=== PATIENT | female | born 1930 | race Caucasian/White ===

== ENCOUNTER 2020-09-12 19:11 | Inpatient (IN) ==
--- NOTE | 2020-09-12 19:54 | Emergency Department Note ---
Impression & Plan Nausea, vomiting, and diarrhea, Urinary tract infection ED Provider Note INFORMANT: Patient ED PROVIDER(S): Bryce Alonso MD CHIEF COMPLAINT: Nausea, vomiting, diarrhea PLAN: Disposition: Admitted Condition: Good Outpatient prescription management: none Referral: None MEDICAL DECISION MAKING: Patient presented because of nausea and vomiting. She did have some diarrhea as well. Family noted that she was very weak. She has some difficulty ambulating at baseline but it had significantly worsened since her illness. had similar symptoms last week. The patient had a benign abdomen. She had stable vital signs. She was hydrated and given Zofran. She was feeling significantly better with this. She did provide a urinalysis and blood work. Her CBC was unremarkable. LFTs and lipase were negative. The patient's chemistry panel was concerning for dehydration and urinalysis concerning for UTI. She was treated with IV Rocephin. She is given oral fluids. The patient was feeling better but was still very weak. She did not feel well enough to go home and family agreed. I discussed further management in the hospital and patient and family were in agreement. Consultation was made with Dr. Johnie Santiago of the [facility] service. Patient was evaluated in the ER for further management. The patient was seen and examined with Dr. Heck, resident physician. We discussed the case and treatments ordered, reviewed the results, and determine the disposition. I have been directly involved with the management and disposition as well as independently evaluated the patient as documented in this note. Triage Nursing notes reviewed and agree them. Vital Signs: reviewed and remarkable for no significant abnormalities Differential diagnosis: Viral process, infection, dehydration, metabolic abnormality, hypo/hyperglycemia, electrolyte disturbance, anemia, hypoxia, cardiac sources, intracerebral event, toxicologic, intra-abdominal pathology, as well as other pathologies. Diagnostics interpreted by me: ECG: Twelve-lead ECG reveals normal sinus rhythm at [address] elevation or depression. No PACs or PVCs. Normal QRS and axis. Cardiac Monitoring: Cardiac monitoring ordered by me: The patient was placed on continuous cardiac monitoring and observed. It revealed a normal sinus rhythm at 82 beats per minute without ectopy or evidence of dysrhythmia. Imaging studies: Deferred. The patient had a benign abdomen. HPI: The patient is a 89 year old female who presents to the Emergency Room with complaints of vomiting. This started last night at 10 pm and is persisting. The patient also notes the following associated symptoms, chills, nausea, diarrhea, nasal congestion, fleeting abdominal pain. The patient has taken two advil for relieving factors. Current pain is rated as 0/10. was sick with NVD last week. Pt denies LOC, headache, fevers, diaphoresis, visual changes, neck pain, chest pain, breathing difficulties, abdominal pain, back pain, melena, hematochezia, urinary symptoms, numbness, weakness, lymphadenopathy, rash, or other complaints. ROS: See above HPI for pertinent positives & negatives. A total of 10 systems reviewed and were otherwise negative. PAST MEDICAL HISTORY:See Below , diabetes PAST SURGICAL HISTORY:See Below, denies abd surgeries FAMILY HISTORY:See Below SOCIAL HISTORY:See Below, HOME MEDICATIONS:See Below ALLERGIES:See Below VITALS:See Below PHYSICAL EXAMINATION: GENERAL: Awake, alert, uncomfortable-appearing, in no distress HENT: Normocephalic, atraumatic. Oropharynx unremarkable. EYES: Normal conjunctiva. Sclera non-icteric. NECK: Inspection normal. Non-tender. Supple. No nuchal rigidity. FROM. No masses. RESPIRATORY: Clear to auscultation. No wheezes. No rales. Normal respiratory effort. CARDIAC: Normal rate. Normal rhythm. No murmurs. No rubs. Extremities warm and well perfused. Pulses equal. No JVD. GI: Soft, non-distended. No tenderness to palpation. No rebound or guarding. No masses. RECTAL: Deferred. MUSCULOSKELETAL: Atraumatic. Chest examination reveals no tenderness. The back is symmetrical on inspection without obvious abnormality. There is no CVA tenderness to palpation. No joint edema. LOWER EXTREMITIES: Calves are equal size bilaterally and non-tender. No edema. No discoloration. NEURO: Normal sensorium. No sensory or motor deficits noted. SKIN: No rash or jaundice noted. Bryce Alonso MD Past Med/Surg History Medical History (Updated 09/13/20 @ 03:23 by Bryce Alonso MD) Diabetes mellitus Hyperlipidemia Hypertension Social History Smoking Status: Never smoker Hx Alcohol Use: Yes Alcohol type: wine Hx Substance Use: No Preferred Language: Burundian Communication Ability: Effective Snuff [employer]inder [employer] Screener Required: No Beliefs That Will Affect Care: None Current Living Situation: Spouse Feels Safe at Home: Yes Assistive Devices: Walker Allergies Allergies Allergy/AdvReac Type Severity Reaction Status Date / Time No Known Allergies Allergy Unverified 09/13/20 00:00 Home Meds Home Medications Medication Instructions Recorded Confirmed metformin 850 mg tablet 850 mg PO QAM 09/12/20 09/13/20 moexipril 7.5 mg tablet 7.5 mg PO DAILY 09/12/20 09/13/20 multivitamin 1 tab PO DAILY 09/12/20 09/13/20 simvastatin 40 mg tablet 40 mg PO HS 09/12/20 09/13/20 Results & Data (ED) Vital Signs Vital Signs - 24 hr 09/12/20 19:14 09/12/20 19:52 09/12/20 20:30 Temperature 37.3 C Temperature Source Temporal Artery Scan Pulse Rate 92 H 80 Pulse Rate [Left Finger] 85 Pulse Rate from SpO2 Sensor 81 Pulse Rhythm [Left Finger] Regular Respiratory Rate 18 19 Respiratory Effort / Characteristics Non-Labored Spontaneous Respiratory Depth Normal Blood Pressure 116/71 116/78 Blood Pressure [Left Arm] 119/72 Blood Pressure Mean 86 90 Blood Pressure Mean [Left Arm] 87 Blood Pressure Position [Left Arm] Sitting Pulse Oximetry 92 92 93 Oxygen Delivery Method Room Air Sepsis Recent Fever Within 48 Hours No Sepsis New/Unexplained Change in Mental Status No Sepsis Action Taken by Nursing No Action Required 09/12/20 21:00 09/12/20 21:30 09/12/20 22:00 Temperature Temperature Source Pulse Rate 83 82 77 Pulse Rate [Left Finger] Pulse Rate from SpO2 Sensor 82 82 78 Pulse Rhythm [Left Finger] Respiratory Rate 17 19 24 Respiratory Effort / Characteristics Respiratory Depth Blood Pressure 116/72 111/67 115/74 Blood Pressure [Left Arm] Blood Pressure Mean 86 81 87 Blood Pressure Mean [Left Arm] Blood Pressure Position [Left Arm] Pulse Oximetry 91 91 92 Oxygen Delivery Method Sepsis Recent Fever Within 48 Hours Sepsis New/Unexplained Change in Mental Status Sepsis Action Taken by Nursing 09/12/20 22:30 09/12/20 23:00 Temperature Temperature Source Pulse Rate 80 79 Pulse Rate [Left Finger] Pulse Rate from SpO2 Sensor 81 80 Pulse Rhythm [Left Finger] Respiratory Rate 12 20 Respiratory Effort / Characteristics Respiratory Depth Blood Pressure 120/69 126/76 Blood Pressure [Left Arm] Blood Pressure Mean 86 92 Blood Pressure Mean [Left Arm] Blood Pressure Position [Left Arm] Pulse Oximetry 92 92 Oxygen Delivery Method Sepsis Recent Fever Within 48 Hours Sepsis New/Unexplained Change in Mental Status Sepsis Action Taken by Nursing Laboratory Data Result diagrams: 09/12/20 20:09 09/12/20 20:09 Lab Results 09/12/20 09/12/20 09/12/20 Range/Units 20:09 20:09 21:08 WBC 8.63 (4.8-10.8) K/uL RBC 4.70 (4.2-5.4) M/uL Hgb 14.7 (12.0-16.0) g/dL Hct 44.1 (37-47) % MCV 93.8 (80-100) fL MCH 31.3 (25-34) pg MCHC 33.3 (32-36) g/dL RDW Std Deviation 50.7 H (36.4-46.3) fL RDW Coeff of Wendi 14.6 H (11.5-14.5) % Plt Count 143 (130-400) K/uL MPV 9.4 (7.4-10.4) fL Immature Gran % (Auto) 0.2 % Neut % (Auto) 76.4 % Lymph % (Auto) 11.0 % [place] % (Auto) 11.9 % Eos % (Auto) 0.5 % Baso % (Auto) 0.0 % Neut # (Auto) 6.59 H (1.4-6.5) K/uL Lymph # (Auto) 0.95 L (1.2-3.4) K/uL [place] # (Auto) 1.03 H (0.11-0.59) K/uL Eos # (Auto) 0.04 (0-0.5) K/uL Baso # (Auto) 0.00 (0-0.2) K/uL Immature Gran # (Auto) 0.02 (0.00-0.02) K/uL Sodium 139 (136-145) mmol/L Potassium 3.9 (3.5-5.1) mmol/L Chloride 108 H (98-107) mmol/L Carbon Dioxide 24 (21-32) mmol/L Anion Gap 7.0 (3-11) BUN 30 H (7-18) mg/dl Creatinine 1.12 (0.6-1.2) mg/dl Est Cr Clr Drug Dosing Not Reportable Est GFR ( Amer) 50.8 ml/min Est GFR (Non-Af Amer) 43.8 ml/min BUN/Creatinine Ratio 26.9 H (10-20) Glucose 131 H (70-99) mg/dl Calcium 8.5 (8.5-10.1) mg/dl Total Bilirubin 0.5 (0.2-1) mg/dl AST 18 (15-37) U/L ALT 27 (12-78) U/L Alkaline Phosphatase 55 (45-117) U/L Total Protein 6.9 (6.4-8.2) gm/dl Albumin 3.5 (3.4-5.0) gm/dl Globulin 3.4 (2.5-4.0) gm/dl Albumin/Globulin Ratio 1.0 (0.9-2) Lipase 70 L (73-393) U/L Urine Color Dark Yellow Urine Appearance Cloudy A (Clear) Urine pH 5.5 (4.5-7.5) Ur Specific [place] 1.026 (1.000-1.030) Urine Protein 1+ H (Negative) Urine Glucose (UA) Negative (Negative) Urine Ketones Negative (Negative) Urine Blood 2+ H (Negative) Urine Nitrite Positive A (Negative) Urine Bilirubin Negative (Negative) Urine Urobilinogen Negative (Negative) Ur Leukocyte Esterase 2+ H (Negative) Urine WBC (Auto) >30 H (0-5) /hpf Urine RBC (Auto) 0-4 (0-4) /hpf U Hyaline Cast (Auto) 0 (0-5) /lpf U Epithel Cells (Auto) 10-20 H (0-5) /lpf Urine Bacteria (Auto) 4+ H (Negative) COVID-19 Eval Order SARS-CoV-2 (PCR) (Negative) 09/12/20 09/12/20 Range/Units 23:08 23:08 WBC (4.8-10.8) K/uL RBC (4.2-5.4) M/uL Hgb (12.0-16.0) g/dL Hct (37-47) % MCV (80-100) fL MCH (25-34) pg MCHC (32-36) g/dL RDW Std Deviation (36.4-46.3) fL RDW Coeff of Wendi (11.5-14.5) % Plt Count (130-400) K/uL MPV (7.4-10.4) fL Immature Gran % (Auto) % Neut % (Auto) % Lymph % (Auto) % [place] % (Auto) % Eos % (Auto) % Baso % (Auto) % Neut # (Auto) (1.4-6.5) K/uL Lymph # (Auto) (1.2-3.4) K/uL [place] # (Auto) (0.11-0.59) K/uL Eos # (Auto) (0-0.5) K/uL Baso # (Auto) (0-0.2) K/uL Immature Gran # (Auto) (0.00-0.02) K/uL Sodium (136-145) mmol/L Potassium (3.5-5.1) mmol/L Chloride (98-107) mmol/L Carbon Dioxide (21-32) mmol/L Anion Gap (3-11) BUN (7-18) mg/dl Creatinine (0.6-1.2) mg/dl Est Cr Clr Drug Dosing Est GFR ( Amer) ml/min Est GFR (Non-Af Amer) ml/min BUN/Creatinine Ratio (10-20) Glucose (70-99) mg/dl Calcium (8.5-10.1) mg/dl Total Bilirubin (0.2-1) mg/dl AST (15-37) U/L ALT (12-78) U/L Alkaline Phosphatase (45-117) U/L Total Protein (6.4-8.2) gm/dl Albumin (3.4-5.0) gm/dl Globulin (2.5-4.0) gm/dl Albumin/Globulin Ratio (0.9-2) Lipase (73-393) U/L Urine Color Urine Appearance (Clear) Urine pH (4.5-7.5) Ur Specific [place] (1.000-1.030) Urine Protein (Negative) Urine Glucose (UA) (Negative) Urine Ketones (Negative) Urine Blood (Negative) Urine Nitrite (Negative) Urine Bilirubin (Negative) Urine Urobilinogen (Negative) Ur Leukocyte Esterase (Negative) Urine WBC (Auto) (0-5) /hpf Urine RBC (Auto) (0-4) /hpf U Hyaline Cast (Auto) (0-5) /lpf U Epithel Cells (Auto) (0-5) /lpf Urine Bacteria (Auto) (Negative) COVID-19 Eval Order Covid19 at [facility] SARS-CoV-2 (PCR) NEGATIVE (Negative) Administered Medications Potassium Chloride/Sodium Chloride (Normal Saline W/20 Meq Kcl) 20 meq in 1,000 mls @ 80 mls/hr IV .[id number] SAGAR Stop: 09/13/20 14:29 Last Admin: 09/13/20 02:18 Dose: 80 mls/hr Documented by: [id number] Discontinued Medications Sodium Chloride (Nss) 500 mls @ 125 mls/hr IV .Q4H SAGAR Stop: 10/12/20 19:59 Last Infusion: 09/13/20 01:47 Dose: 0 mls/hr Documented by: [id number] Admin: 09/13/20 00:55 Dose: 125 mls/hr Documented by: [id number] Infusion: 09/13/20 00:55 Dose: 125 mls/hr Documented by: [id number] Admin: 09/12/20 20:56 Dose: 125 mls/hr Documented by: [id number] Sodium Chloride (Nss 1000ml) 500 mls @ 999 mls/hr IV .Q31M ONE Stop: 09/12/20 20:25 Last Infusion: 09/12/20 20:56 Dose: 0 mls/hr Documented by: [id number] Admin: 09/12/20 20:20 Dose: 999 mls/hr Documented by: [id number] Ceftriaxone Sodium (Rocephin) 1,000 mg in 50 mls @ 100 mls/hr IV NOW STA Stop: 09/12/20 23:28 Last Infusion: 09/12/20 23:34 Dose: 0 mls/hr Documented by: [id number] Admin: 09/12/20 23:04 Dose: 100 mls/hr Documented by: [id number] Miscellaneous (Patient's Weight Needed) 1 ea N/A Q2H SAGAR Stop: 09/13/20 06:00 Last Admin: 09/13/20 02:11 Dose: 1 ea Documented by: [id number] Ondansetron HCl (Ondansetron Inj 2 Mg/Ml 2 Ml Vial) 4 mg IV NOW STA Stop: 09/12/20 19:56 Last Admin: 09/13/20 00:25 Dose: Not Given Documented by: [id number] Discharge Plan Visit Data Chief Complaint: Vomiting Stated Complaint: VOMITING ED Provider: Bryce Alonso Discharge Problem: Nausea, vomiting, and diarrhea, Urinary tract infection Patient Disposition: Admitted As Inpatient Discharge Instructions Interventions: ED Discharge Assessment Last Done: 09/13/20 01:07
[2020-09-12] MEDS ORDERED: SODIUM CHLORIDE 0.9% 1000ML 500 ML IV ONE (19:55)
[2020-09-12] MEDS: ONDANSETRON INJ 2 MG/ML 2 ML VIAL IV STA (20:20)
[2020-09-12 20:21] LABS: Eosinophils # (auto) 0.04 K/uL (0-0.5); Eosinophils % (auto) 0.5 %; Hematocrit (blood only) 44.1 % (37-47); Hemoglobin 14.7 g/dL (12.0-16.0); Immature Granulocytes # (auto) 0.02 K/uL (0.00-0.02); Immature Granulocytes % (auto) 0.2 %; Lymphocytes # (auto) 0.95 K/uL (1.2-3.4); Mean Corpuscular Hemoglobin 31.3 pg (25-34); Mean Corpuscular Hgb Conc 33.3 g/dL (32-36); Mean Corpuscular Volume 93.8 fL (80-100); Mean Platelet Volume 9.4 fL (7.4-10.4); Monocytes # (auto) 1.03 K/uL (0.11-0.59); Monocytes % (auto) 11.9 %; Neutrophils # (auto) 6.59 K/uL (1.4-6.5); Neutrophils % (auto) 76.4 %; Platelet Count 143 K/uL (130-400); RDW Coefficient of Variation 14.6 % (11.5-14.5); RDW Standard Deviation 50.7 fL (36.4-46.3); White Blood Count 8.63 K/uL (4.8-10.8)
[2020-09-12 20:42] LABS: Alanine Aminotransferase 27 U/L (12-78); Albumin Level 3.5 gm/dl (3.4-5.0); Aspartate Aminotransferase 18 U/L (15-37); BUN Creatinine Ratio 26.9 (10-20); Blood Urea Nitrogen 30 mg/dl (7-18); Calcium 8.5 mg/dl (8.5-10.1); Carbon Dioxide 24 mmol/L (21-32); Chloride 108 mmol/L (98-107); Est GFR (African American) 50.8 ml/min; Est GFR (Non-African American) 43.8 ml/min; Glucose 131 mg/dl (70-99); Lipase 70 U/L (73-393); Potassium 3.9 mmol/L (3.5-5.1); Sodium 139 mmol/L (136-145)
[2020-09-12 20:45] LABS: Alkaline Phosphatase 55 U/L (45-117); Bilirubin,Total 0.5 mg/dl (0.2-1); Globulin 3.4 gm/dl (2.5-4.0); Total Protein 6.9 gm/dl (6.4-8.2)
[2020-09-12] MEDS: SODIUM CHLORIDE 0.9% 500 ML IV SCH (20:56)
[2020-09-12 21:25] LABS: Appearance Urine Cloudy (Clear); Bacteria Urine Automated 4+ (Negative); Bilirubin Urine Negative (Negative); Blood Urine 2+ (Negative); Color Urine Dark Yellow; Glucose Urine UA Negative (Negative); Ketones Urine Negative (Negative); Leukocyte Esterase Urine 2+ (Negative); Nitrite Urine Positive (Negative); Protein Urine 1+ (Negative); RBC Urine Automated 0-4 /hpf (0-4); Specific Gravity Urine 1.026 (1.000-1.030); Urobilinogen Urine Negative (Negative); WBC Urine Automated >30 /hpf (0-5); pH Urine 5.5 (4.5-7.5)
[2020-09-12 21:43] LABS: Cast Urine Automated 0 /lpf (0-5)
[2020-09-12] MEDS ORDERED: cefTRIAXone SODIUM 1,000 MG/50 ML BAG IV STA (22:59)
--- NOTE | 2020-09-12 23:30 | History & Physical Report ---
Date of Service September 12, 2020 Assessment & Plan (1) Urinary tract infection: Plan: Follow urine culture and sensitivities Follow blood culture and sensitivity Continue ceftriaxone 1 g IV daily, begun in the ED NSS plus KCl 20 mEq at 80 mils per hour x1 L Zofran 4 mg IV every 6 hours as needed (2) Dehydration, mild: Plan: IV fluids as noted above (3) Hypertension: Plan: Hold moexipril (4) Hyperlipidemia: Plan: Continue simvastatin 40 mg at bedtime (5) Diabetes mellitus: Plan: Hold Metformin Patient Accu-Cheks before meals and at bedtime with NovoLog coverage per scale History of Present Illness Chief Complaint: The patient presents to the emergency department with complaint of nausea and vomiting yesterday, with loose stools about 1 week ago while her was also sick, and generalized fatigue over the past 48 hours. Primary Care Provider: Robert Shrestha DO The patient is an 89-year-old female with a past medical history including diabetes mellitus, hypertension, hyperlipidemia and obesity. She and her were both sick about 1 week ago with a 24-hour or so diarrheal illness. Her oral intake has been down somewhat since that time. She did develop nausea and vomiting yesterday, and some generalized fatigue over the past 48 hours. Upon questioning, she does note some discomfort with urination. Allergies Allergy/AdvReac Type Severity Reaction Status Date / Time No Known Allergies Allergy Unverified 09/13/20 00:00 Home Medications Medication Instructions Recorded Confirmed Type metformin 850 mg tablet 850 mg PO QAM 09/12/20 09/13/20 History moexipril 7.5 mg tablet 7.5 mg PO DAILY 09/12/20 09/13/20 History multivitamin 1 tab PO DAILY 09/12/20 09/13/20 History simvastatin 40 mg tablet 40 mg PO HS 09/12/20 09/13/20 History Past Med/Surg History Medical History (Updated 09/13/20 @ 00:10 by Johnie Santiago MD) Diabetes mellitus Hyperlipidemia Hypertension Social History Smoking Status: Never smoker Preferred Language: Syriac Feels Safe at Home: Yes Review of Systems Review of Systems: The patient denies chest pain, palpitations, shortness of breath, dyspnea on exertion, cough, lower extremity swelling, sore throat, fevers, chills, sweats, constipation, abdominal pain, pelvic pain, blood in urine or stool, urinary frequency or urgency, lightheadedness, dizziness, headache, memory loss, loss of consciousness, rash, abnormal bruising or bleeding, imbalance, focal weakness, numbness or tingling in arms or legs, generalized arthralgias or myalgias, back or neck pain, or night sweats. The review of systems is otherwise negative other than for that already noted above, and at least 10 systems have been reviewed. Physical Exam Physical Exam: The patient is awake, alert and oriented 3, well developed and well nourished, normocephalic and atraumatic, lying in bed and in no acute distress. HEENT--PERRL, EOMI, mucous membranes and oropharynx dry. Neck--supple. No JVD. No bruits. Thyroid normal, trachea midline, no adenopathy. Heart--normal S1 and S2. No murmurs, rubs or gallops. Lungs--clear bilaterally, no respiratory distress, no accessory muscle use. Abdomen--normal bowel sounds and soft. Nontender. Nondistended, no hernias or masses, no organomegaly. Extremities--no cyanosis or clubbing. No edema. Dermatologic--normal skin turgor, normal color, no abnormal lymph nodes, no rash. Neurologic--cranial nerves II through XII grossly intact. Rheumatologic--normal range of motion. Psychiatric--normal affect. Results & Data Results & Data ([facility]) Vital Signs (Past 12 Hours) Vital Signs Temp Pulse Pulse Resp BP BP Pulse Ox 09/12/20 22:30 80 12 120/69 92 09/12/20 22:00 77 24 115/74 92 09/12/20 21:30 82 19 111/67 91 09/12/20 21:00 83 17 116/72 91 09/12/20 20:30 80 19 116/78 93 09/12/20 19:52 85 119/72 92 09/12/20 19:14 99.1 F 92 H 18 116/71 92 Laboratory Results Laboratory Results WBC 8.63 K/uL (4.8-10.8) 09/12/20 20:09 RBC 4.70 M/uL (4.2-5.4) 09/12/20 20:09 Hgb 14.7 g/dL (12.0-16.0) 09/12/20 20:09 Hct 44.1 % (37-47) 09/12/20 20:09 MCV 93.8 fL (80-100) 09/12/20 20:09 MCH 31.3 pg (25-34) 09/12/20 20:09 MCHC 33.3 g/dL (32-36) 09/12/20 20:09 RDW Std Deviation 50.7 fL (36.4-46.3) H 09/12/20 20:09 RDW Coeff of Wendi 14.6 % (11.5-14.5) H 09/12/20 20:09 Plt Count 143 K/uL (130-400) 09/12/20 20:09 MPV 9.4 fL (7.4-10.4) 09/12/20 20:09 Immature Gran % (Auto) 0.2 % 09/12/20 20:09 Neut % (Auto) 76.4 % 09/12/20 20:09 Lymph % (Auto) 11.0 % 09/12/20 20:09 [place] % (Auto) 11.9 % 09/12/20 20:09 Eos % (Auto) 0.5 % 09/12/20 20:09 Baso % (Auto) 0.0 % 09/12/20 20: Neut # (Auto) 6.59 K/uL (1.4-6.5) H 09/12/20 20:09 Lymph # (Auto) 0.95 K/uL (1.2-3.4) L 09/12/20 20:09 [place] # (Auto) 1.03 K/uL (0.11-0.59) H 09/12/20 20:09 Eos # (Auto) 0.04 K/uL (0-0.5) 09/12/20 20:09 Baso # (Auto) 0.00 K/uL (0-0.2) 09/12/20 20:09 Immature Gran # (Auto) 0.02 K/uL (0.00-0.02) 09/12/20 20:09 Sodium 139 mmol/L (136-145) 09/12/20 20:09 Potassium 3.9 mmol/L (3.5-5.1) 09/12/20 20:09 Chloride 108 mmol/L (98-107) H 09/12/20 20:09 Carbon Dioxide 24 mmol/L (21-32) 09/12/20 20:09 Anion Gap 7.0 (3-11) 09/12/20 20:09 BUN 30 mg/dl (7-18) H 09/12/20 20:09 Creatinine 1.12 mg/dl (0.6-1.2) 09/12/20 20:09 Est Cr Clr Drug Dosing Not Reportable 09/12/20 20:09 Est GFR ( Amer) 50.8 ml/min 09/12/20 20:09 Est GFR (Non-Af Amer) 43.8 ml/min 09/12/20 20:09 BUN/Creatinine Ratio 26.9 (10-20) H 09/12/20 20:09 Glucose 131 mg/dl (70-99) H 09/12/20 20:09 Calcium 8.5 mg/dl (8.5-10.1) 09/12/20 20:09 Total Bilirubin 0.5 mg/dl (0.2-1) 09/12/20 20:09 AST 18 U/L (15-37) 09/12/20 20:09 ALT 27 U/L (12-78) 09/12/20 20:09 Alkaline Phosphatase 55 U/L (45-117) 09/12/20 20:09 Total Protein 6.9 gm/dl (6.4-8.2) 09/12/20 20:09 Albumin 3.5 gm/dl (3.4-5.0) 09/12/20 20: Globulin 3.4 gm/dl (2.5-4.0) 09/12/20 20:09 Albumin/Globulin Ratio 1.0 (0.9-2) 09/12/20 20:09 Lipase 70 U/L (73-393) L 09/12/20 20:09 Urine Color Dark Yellow 09/12/20 21:08 Urine Appearance Cloudy (Clear) A 09/12/20 21:08 Urine pH 5.5 (4.5-7.5) 09/12/20 21:08 Ur Specific [place] 1.026 (1.000-1.030) 09/12/20 21:08 Urine Protein 1+ (Negative) H 09/12/20 21:08 Urine Glucose (UA) Negative (Negative) 09/12/20 21:08 Urine Ketones Negative (Negative) 09/12/20 21:08 Urine Blood 2+ (Negative) H 09/12/20 21:08 Urine Nitrite Positive (Negative) A 09/12/20 21:08 Urine Bilirubin Negative (Negative) 09/12/20 21:08 Urine Urobilinogen Negative (Negative) 09/12/20 21:08 Ur Leukocyte Esterase 2+ (Negative) H 09/12/20 21:08 Urine WBC (Auto) >30 /hpf (0-5) H 09/12/20 21:08 Urine RBC (Auto) 0-4 /hpf (0-4) 09/12/20 21:08 U Hyaline Cast (Auto) 0 /lpf (0-5) 09/12/20 21:08 U Epithel Cells (Auto) 10-20 /lpf (0-5) H 09/12/20 21:08 Urine Bacteria (Auto) 4+ (Negative) H 09/12/20 21:08 COVID-19 Eval Order Covid19 at [facility] 09/12/20 23:08 Code Status & VTE Plan Code Status Full code VTE Prophylaxis Plan VTE Prophylaxis will be ordered: Yes PG Care Time/CCT Total # of Minutes Spent Total Time Spent with Patient: Total time spent is greater than 50% in coordination of care (as documented) at patient's floor/unit and/or counseling patient: Coding Level of Care Code 22409 Initial Inpt Care Lvl 2 Diagnoses Urinary tract infection N39.0 Dehydration, mild E86.0 Hypertension I10 Hyperlipidemia E78.5 Diabetes mellitus E11.9
[2020-09-13] MEDS: ONDANSETRON INJ 2 MG/ML 2 ML VIAL IV STA (00:25)
[2020-09-13] MEDS: SODIUM CHLORIDE 0.9% 500 ML IV SCH (00:55)
[2020-09-13] MEDS ORDERED: CARBOHYDRATES FOR HYPOGLYCEMIA PO PRN (01:46)
[2020-09-13] MEDS ORDERED: GLUCOSE 10 TABS/TUBE PO PRN (01:46)
[2020-09-13] MEDS ORDERED: GLUCOSE 40% GEL 15 GM TUBE PO PRN (01:46)
[2020-09-13] MEDS ORDERED: ONDANSETRON INJ 2 MG/ML 2 ML VIAL IV PRN (01:46)
[2020-09-13] MEDS ORDERED: ACETAMINOPHEN 325 MG TAB PO PRN (01:46)
[2020-09-13] MEDS ORDERED: DEXTROSE 50% 50 ML SYRINGE IV PRN (01:46)
[2020-09-13] MEDS ORDERED: GLUCAGON FOR INJ 1 MG VIAL SQ PRN (01:46)
[2020-09-13] MEDS ORDERED: NSS + 20MEQ KCL 20 MEQ/1,000 ML BAG IV SCH (02:00)
[2020-09-13] MEDS ORDERED: PATIENT'S WEIGHT NEEDED SCH (02:00)
[2020-09-13] MEDS: INSULIN ASPART 100 UNITS/ML 3 ML PEN SC SCH ×4 (08:33→21:36)
[2020-09-13] MEDS: HEPARIN SOD 5,000 UNIT/0.5 ML VIAL SQ SCH ×2 (08:34→20:26)
[2020-09-13 09:00] LABS: Estimated Average Glucose 143 mg/dl; Hemoglobin A1C 6.6 % (4.5-5.6)
--- NOTE | 2020-09-13 13:10 | Electrocardiogram Report ---
Test Reason : Blood Pressure : / mmHG Vent. Rate : 085 BPM Atrial Rate : 085 BPM P-R Int : 166 ms QRS Dur : 084 ms QT Int : 362 ms P-R-T Axes : 051 011 056 degrees QTc Int : 430 ms Normal sinus rhythm Nonspecific ST abnormality No previous ECGs available Confirmed by Richard Jackson ([id number] on 09/13/2020 1:09:39 PM Referred By: REFERRED SELF Confirmed By:Neto Jackson
--- NOTE | 2020-09-13 16:00 | Family Medicine Progress Note ---
Date of Service September 13, 2020 Assessment & Plan (1) Urinary tract infection: Plan: Continue ceftriaxone Await speciation Blood cultures drawn this morning Present on Admission?: Yes (2) Nausea, vomiting, and diarrhea: Plan: Resolved Tolerating p.o. without difficulty As needed antiemetics if needed (Zofran) Present on Admission?: Yes (3) Dehydration, mild: Plan: Secondary to nausea with vomiting Gentle IV fluids Recheck BMP and a.m. Suspect this also improved with improved p.o. intake (4) Hypertension: Plan: Blood pressures well controlled We will restart home blood pressure medications tomorrow after reviewing [employer] Present on Admission?: Yes (5) Hyperlipidemia: Plan: Continue simvastatin (6) Diabetes mellitus: Plan: Holding metformin Sliding scale insulin Likely restart Metformin upon discharge Present on Admission?: Yes Admission and Anticipated Discharge Date Admission Date: September 12, 2020 Anticipated date of discharge: 09/14/20 Tracey Browne is feeling better today. Upon my exam, she is awake, alert, without complaints lying semireclined in her hospital bed. She explains that her Delgado had been sick with what sounds to be like a generalized gastroenteritis. He improved in about 1 week to the day that his symptoms began, she came down with symptoms. She describes generalized weakness, fatigue, nausea and one episode of emesis. She denies having any loose stool. Since admission, she is remained afebrile. She tolerated breakfast today without difficulty. Review of Systems Constitutional: + fatigue; no fever, no chills, no anorexia and no daytime sleepiness Eyes: no problem reported Ear, Nose, Mouth, Throat: no problem reported Cardiovascular: no chest pain, no chest pain at rest, no dyspnea, no dyspnea on exertion and no palpitations Gastrointestinal: no abdominal pain, no nausea and no vomiting Musculoskeletal: + muscle weakness Physical Exam Eyes: PERRL, conjunctivae normal, anicteric sclerae Neck: trachea midline, no thyromegaly Respiratory: normal respiratory effort, lungs clear to auscultation Cardiovascular: Rate/Rhythm: regular rate and regular rhythm Gastrointestinal (Abdomen): normal bowel sounds, soft, nontender, no hepatosplenomegaly Musculoskeletal: no cyanosis or clubbing, extremities motor strength 5/5 Skin: no rashes, warm and dry Neurologic: normal touch/pain/proprioception Psychiatric: A+Ox3, euthymic affect Results & Data ([facility]) Vital Signs (Past 12 Hours) Vital Signs Temp Pulse Resp BP Pulse Ox 09/13/20 07:10 37.0 C 68 16 132/84 95 Laboratory Results 09/13/20 09/13/20 09/13/20 Range/Units 11:58 08:25 07:32 WBC (4.8-10.8) K/uL RBC (4.2-5.4) M/uL Hgb (12.0-16.0) g/dL Hct (37-47) % MCV (80-100) fL MCH (25-34) pg MCHC (32-36) g/dL RDW Std Deviation (36.4-46.3) fL RDW Coeff of Wendi (11.5-14.5) % Plt Count (130-400) K/uL MPV (7.4-10.4) fL Immature Gran % (Auto) % Neut % (Auto) % Lymph % (Auto) % [place] % (Auto) % Eos % (Auto) % Baso % (Auto) % Neut # (Auto) (1.4-6.5) K/uL Lymph # (Auto) (1.2-3.4) K/uL [place] # (Auto) (0.11-0.59) K/uL Eos # (Auto) (0-0.5) K/uL Baso # (Auto) (0-0.2) K/uL Immature Gran # (Auto) (0.00-0.02) K/uL Sodium (136-145) mmol/L Potassium (3.5-5.1) mmol/L Chloride (98-107) mmol/L Carbon Dioxide (21-32) mmol/L Anion Gap (3-11) BUN (7-18) mg/dl Creatinine (0.6-1.2) mg/dl Est Cr Clr Drug Dosing Est GFR ( Amer) ml/min Est GFR (Non-Af Amer) ml/min BUN/Creatinine Ratio (10-20) Glucose (70-99) mg/dl POC Glucose 101 H 107 H (70-99) mg/dl Estimat Average Glucose 143 mg/dl Hemoglobin A1c 6.6 H (4.5-5.6) % Calcium (8.5-10.1) mg/dl Total Bilirubin (0.2-1) mg/dl AST (15-37) U/L ALT (12-78) U/L Alkaline Phosphatase (45-117) U/L Total Protein (6.4-8.2) gm/dl Albumin (3.4-5.0) gm/dl Globulin (2.5-4.0) gm/dl Albumin/Globulin Ratio (0.9-2) Lipase (73-393) U/L Urine Color Urine Appearance (Clear) Urine pH (4.5-7.5) Ur Specific [place] (1.000-1.030) Urine Protein (Negative) Urine Glucose (UA) (Negative) Urine Ketones (Negative) Urine Blood (Negative) Urine Nitrite (Negative) Urine Bilirubin (Negative) Urine Urobilinogen (Negative) Ur Leukocyte Esterase (Negative) Urine WBC (Auto) (0-5) /hpf Urine RBC (Auto) (0-4) /hpf U Hyaline Cast (Auto) (0-5) /lpf U Epithel Cells (Auto) (0-5) /lpf Urine Bacteria (Auto) (Negative) COVID-19 Eval Order SARS-CoV-2 (PCR) (Negative) 09/12/20 09/12/20 09/12/20 Range/Units 23:08 23:08 21:08 WBC (4.8-10.8) K/uL RBC (4.2-5.4) M/uL Hgb (12.0-16.0) g/dL Hct (37-47) % MCV (80-100) fL MCH (25-34) pg MCHC (32-36) g/dL RDW Std Deviation (36.4-46.3) fL RDW Coeff of Wendi (11.5-14.5) % Plt Count (130-400) K/uL MPV (7.4-10.4) fL Immature Gran % (Auto) % Neut % (Auto) % Lymph % (Auto) % [place] % (Auto) % Eos % (Auto) % Baso % (Auto) % Neut # (Auto) (1.4-6.5) K/uL Lymph # (Auto) (1.2-3.4) K/uL [place] # (Auto) (0.11-0.59) K/uL Eos # (Auto) (0-0.5) K/uL Baso # (Auto) (0-0.2) K/uL Immature Gran # (Auto) (0.00-0.02) K/uL Sodium (136-145) mmol/L Potassium (3.5-5.1) mmol/L Chloride (98-107) mmol/L Carbon Dioxide (21-32) mmol/L Anion Gap (3-11) BUN (7-18) mg/dl Creatinine (0.6-1.2) mg/dl Est Cr Clr Drug Dosing Est GFR ( Amer) ml/min Est GFR (Non-Af Amer) ml/min BUN/Creatinine Ratio (10-20) Glucose (70-99) mg/dl POC Glucose (70-99) mg/dl Estimat Average Glucose mg/dl Hemoglobin A1c (4.5-5.6) % Calcium (8.5-10.1) mg/dl Total Bilirubin (0.2-1) mg/dl AST (15-37) U/L ALT (12-78) U/L Alkaline Phosphatase (45-117) U/L Total Protein (6.4-8.2) gm/dl Albumin (3.4-5.0) gm/dl Globulin (2.5-4.0) gm/dl Albumin/Globulin Ratio (0.9-2) Lipase (73-393) U/L Urine Color Dark Yellow Urine Appearance Cloudy A (Clear) Urine pH 5.5 (4.5-7.5) Ur Specific [place] 1.026 (1.000-1.030) Urine Protein 1+ H (Negative) Urine Glucose (UA) Negative (Negative) Urine Ketones Negative (Negative) Urine Blood 2+ H (Negative) Urine Nitrite Positive A (Negative) Urine Bilirubin Negative (Negative) Urine Urobilinogen Negative (Negative) Ur Leukocyte Esterase 2+ H (Negative) Urine WBC (Auto) >30 H (0-5) /hpf Urine RBC (Auto) 0-4 (0-4) /hpf U Hyaline Cast (Auto) 0 (0-5) /lpf U Epithel Cells (Auto) 10-20 H (0-5) /lpf Urine Bacteria (Auto) 4+ H (Negative) COVID-19 Eval Order Cov[facility]19 at [facility] SARS-CoV-2 (PCR) NEGATIVE (Negative) 09/12/20 09/12/20 Range/Units 20:09 20:09 WBC 8.63 (4.8-10.8) K/uL RBC 4.70 (4.2-5.4) M/uL Hgb 14.7 (12.0-16.0) g/dL Hct 44.1 (37-47) % MCV 93.8 (80-100) fL MCH 31.3 (25-34) pg MCHC 33.3 (32-36) g/dL RDW Std Deviation 50.7 H (36.4-46.3) fL RDW Coeff of Wendi 14.6 H (11.5-14.5) % Plt Count 143 (130-400) K/uL MPV 9.4 (7.4-10.4) fL Immature Gran % (Auto) 0.2 % Neut % (Auto) 76.4 % Lymph % (Auto) 11.0 % [place] % (Auto) 11.9 % Eos % (Auto) 0.5 % Baso % (Auto) 0.0 % Neut # (Auto) 6.59 H (1.4-6.5) K/uL Lymph # (Auto) 0.95 L (1.2-3.4) K/uL [place] # (Auto) 1.03 H (0.11-0.59) K/uL Eos # (Auto) 0.04 (0-0.5) K/uL Baso # (Auto) 0.00 (0-0.2) K/uL Immature Gran # (Auto) 0.02 (0.00-0.02) K/uL Sodium 139 (136-145) mmol/L Potassium 3.9 (3.5-5.1) mmol/L Chloride 108 H (98-107) mmol/L Carbon Dioxide 24 (21-32) mmol/L Anion Gap 7.0 (3-11) BUN 30 H (7-18) mg/dl Creatinine 1.12 (0.6-1.2) mg/dl Est Cr Clr Drug Dosing Not Reportable Est GFR ( Amer) 50.8 ml/min Est GFR (Non-Af Amer) 43.8 ml/min BUN/Creatinine Ratio 26.9 H (10-20) Glucose 131 H (70-99) mg/dl POC Glucose (70-99) mg/dl Estimat Average Glucose mg/dl Hemoglobin A1c (4.5-5.6) % Calcium 8.5 (8.5-10.1) mg/dl Total Bilirubin 0.5 (0.2-1) mg/dl AST 18 (15-37) U/L ALT 27 (12-78) U/L Alkaline Phosphatase 55 (45-117) U/L Total Protein 6.9 (6.4-8.2) gm/dl Albumin 3.5 (3.4-5.0) gm/dl Globulin 3.4 (2.5-4.0) gm/dl Albumin/Globulin Ratio 1.0 (0.9-2) Lipase 70 L (73-393) U/L Urine Color Urine Appearance (Clear) Urine pH (4.5-7.5) Ur Specific [place] (1.000-1.030) Urine Protein (Negative) Urine Glucose (UA) (Negative) Urine Ketones (Negative) Urine Blood (Negative) Urine Nitrite (Negative) Urine Bilirubin (Negative) Urine Urobilinogen (Negative) Ur Leukocyte Esterase (Negative) Urine WBC (Auto) (0-5) /hpf Urine RBC (Auto) (0-4) /hpf U Hyaline Cast (Auto) (0-5) /lpf U Epithel Cells (Auto) (0-5) /lpf Urine Bacteria (Auto) (Negative) COVID-19 Eval Order SARS-CoV-2 (PCR) (Negative)
[2020-09-13] MEDS ORDERED: cefTRIAXone SODIUM 1,000 MG in DEXTROSE 5% 50 ML IV SCH (20:00)
[2020-09-13] MEDS ORDERED: SIMVASTATIN 40 MG TAB PO SCH (21:00)
[2020-09-14 06:12] LABS: BUN Creatinine Ratio 24.4 (10-20); Creatinine Clr Calc Pharmacy 45.7 ml/min; Est GFR (African American) 71.9 ml/min; Est GFR (Non-African American) 62.1 ml/min; Potassium 3.8 mmol/L (3.5-5.1)
[2020-09-14 06:15] LABS: Albumin Globulin Ratio 0.9 (0.9-2); Bilirubin,Total 0.4 mg/dl (0.2-1); Globulin 3.2 gm/dl (2.5-4.0); Total Protein 6.2 gm/dl (6.4-8.2)
[2020-09-14 06:19] LABS: Basophils # (auto) 0.01 K/uL (0-0.2); Basophils % (auto) 0.1 %; Eosinophils # (auto) 0.22 K/uL (0-0.5); Hematocrit (blood only) 39.6 % (37-47); Hemoglobin 12.9 g/dL (12.0-16.0); Immature Granulocytes # (auto) 0.01 K/uL (0.00-0.02); Immature Granulocytes % (auto) 0.1 %; Lymphocytes % (auto) 29.6 %; Mean Corpuscular Hgb Conc 32.6 g/dL (32-36); Mean Corpuscular Volume 95.2 fL (80-100); Mean Platelet Volume 9.8 fL (7.4-10.4); Monocytes # (auto) 0.83 K/uL (0.11-0.59); Monocytes % (auto) 11.2 %; Neutrophils # (auto) 4.15 K/uL (1.4-6.5); Platelet Count 133 K/uL (130-400); RDW Coefficient of Variation 14.7 % (11.5-14.5); Red Blood Count 4.16 M/uL (4.2-5.4); White Blood Count 7.42 K/uL (4.8-10.8)
[2020-09-14] MEDS: INSULIN ASPART 100 UNITS/ML 3 ML PEN SC SCH (08:44)
[2020-09-14] MEDS: HEPARIN SOD 5,000 UNIT/0.5 ML VIAL SQ SCH (08:45)
--- NOTE | 2020-09-14 12:00 | Discharge Summary ---
Date of Service September 14, 2020 Admission HPI Per Admitting Provider The patient is an 89-year-old female with a past medical history including diabetes mellitus, hypertension, hyperlipidemia and obesity. She and her were both sick about 1 week ago with a 24-hour or so diarrheal illness. Her oral intake has been down somewhat since that time. She did develop nausea and vomiting yesterday, and some generalized fatigue over the past 48 hours. Upon questioning, she does note some discomfort with urination. Admission Exam (Per Admitting) Eyes PERRL, conjunctivae normal, anicteric sclerae Neck trachea midline, no thyromegaly Respiratory normal respiratory effort, lungs clear to auscultation Cardiovascular Rate/Rhythm: regular rate and regular rhythm Gastrointestinal (Abdomen) normal bowel sounds, soft, nontender, no hepatosplenomegaly Musculoskeletal no cyanosis or clubbing, extremities motor strength 5/5 Skin no rashes, warm and dry Neurologic normal touch/pain/proprioception Psychiatric A+Ox3, euthymic affect Discharge Data Consultations 09/12/20 23:20 ED Decision to Admit Stat Procedures Performed None Hospital Course (1) Urinary tract infection: Urine culture showed E. coli with preciado sensitivity She received IV Rocephin, transition to p.o. Bactrim for discharge Blood cultures show no growth at 24 hours. Patient has been afebrile since admission; no leukocytosis. She feels well and anticipates discharge. I will follow up on blood cultures at 48 hours. (2) Nausea, vomiting, and diarrhea: Resolved Tolerating p.o. without difficulty (3) Dehydration, mild: Secondary to nausea with vomiting Improved with gentle IV fluids Recheck BMP and a.m. Suspect this also improved with improved p.o. intake (4) Hypertension: Home blood pressure medications were held during hospitalization Blood pressures were trending up/borderline high on day of discharge We will resume home blood pressure medications (5) Hyperlipidemia: Continued simvastatin (6) Diabetes mellitus: Metformin was held given her acute illness Her blood sugars were actually quite good off the Metformin We will have her continue to hold and resume Metformin in 7 days
[2020-09-14] MEDS ORDERED: SULFAMETHOXAZOLE/TRIMETHOPRIM DS 800/160MG TAB PO ONE (12:05)
== END 2020-09-14 13:37 | disposition home or self-care (01) | DRG 690 ==
LOC: ED 19:11 → SUATTDRO 23:29 → 3E 23:29